=== PATIENT | female | born 1990 | race Caucasian/White ===

== ENCOUNTER 2016-08-04 23:12 | Emergency (ER) | payer OTHER ==
--- NOTE | 2016-08-05 02:48 | ED ORDER SUMMARY ---
..... Patient: ANNA HARKINS OrderSheet [facility] VisitID: [id number] [place] [address] 26y, F Registration Date/Time: 08/04/2016 ORDER SHEET Weight: 65.7 kg (stated) Allergies: Amoxicillin, Codeine, Penicillin GENERAL ORDERS: CBC w Diff Urgent (:08/04/2016 Jacqueline SALINAS) (Ack 23:45 IJurca ER Tech1) CMP Urgent (:08/04/2016 Jacqueline SALINAS) (Ack 23:45 LORETAurca ER Tech1) UA-Culture if indicated Urgent (:08/04/2016 Jacqueline SALINAS) (Ack 23:45 Gail ER Tech1) Urine Urgent (:08/04/2016 Jacqueline SALINAS) (Ack 23:45 IJurca ER Tech1) MEDICATION ORDERS: IV FLUIDS: IV NS : initial bolus 1000 mL (1000 mL/hr), then 1000 mL/hr for X1 (NOW); Routine (:08/04/2016 Jacqueline SALINAS) (0:03 SSambou R.N.) Zofran IV 4 mg (NOW) (:08/04/2016 Jacqueline SALINAS) (0:04 SSambou R.N.) ORDER SHEET NOTES: [Electronically signed by Sheriff Alicia Mills (03:08/05/2016)] [Electronically signed by Sudeep Johnson MD (11:27 08/07/2016)] [Electronically locked/signed by Sheriff Alicia Mills (03:08/05/2016)]
--- NOTE | 2016-08-05 02:48 | ED NURSING NOTES ---
Clinical Report - Nurses [facility] [place] [address] 08/04/2016 23:15 Patient: ANNA HARKINS TRIAGE Triage time 23:26. Acuity: LEVEL 3. Chief Complaint: DIZZINESS, NAUSEA and VOMITING. Alert. --23:31 Sheriff Mills R.N. 23:26 08/04/16. BP: 122/76. HR: 116. RR: 18. O2 saturation: 100%. Temp: 99.1 F. Pain level now: 09/27. --23:31 Sheriff Mills R.N. Weight: 65.7 kg stated. Height/Length: 66 inches Per Patient. BMI: 23.4. --01:59 Sheriff Mills R.N. Medications None. --23:29 Sheriff Mills R.N. Allergies Amoxicillin. Codeine. Penicillin. --23:29 Sheriff Mills R.N. History Historian: patient. Accompanied by spouse. This started today. SOCIAL HX: Never smoker. No alcohol use or drug use. FALL RISK ASSESSMENT: Fall risk assessment completed. No fall risk identified. NUTRITIONAL RISK ASSESSMENT: The nutritional risk assessment revealed no deficiencies. FUNCTIONAL ASSESSMENT: Functional assessment: no impairments noted. LEARNING NEEDS ASSESSMENT: The learning needs assessment revealed no barriers. SKIN INTEGRITY ASSESSMENT: Skin integrity risk assessment completed. No skin integrity risk identified. --23:31 Sheriff Mills R.N. PROBLEMS: Headache. Asthma. --23:30 Sheriff Mills R.N. Interventions ID band on patient. To room. --23:31 Sheriff Mills R.N. PHYSICAL ASSESSMENT GENERAL / NEURO / PSYCH: Alert. Oriented X 4. HEENT: No facial asymmetry noted. RESPIRATORY: Respirations not labored. CVS: Capillary refill less than 2 seconds. Pulses within normal limits. SKIN: Skin is warm and dry. --23:32 Sheriff Mills R.N. NURSING PROGRESS NOTES Patient gowned. Head of bed elevated. Two patient identifiers checked. Call light placed in reach. Side rails up. Bed placed in lowest position. Brakes of bed on. Patient ready for evaluation- chart flagged. --23:32 Sheriff Mills R.N. 00:03 08/05/2016 Site #1 started via IV in the right antecubital space with an 20g angiocath, with aseptic technique and good blood return; one attempt. Blood drawn: rainbow set. Saline lock flushed with 10 mL saline. --00:03 Sheriff Mills R.N. 00:03 08/05/2016 Started bag #1 1000 mL IV Fluids IV NS (Saline); at 999 mL/hr over 45 minute(s) via site #1. Allergies verified and confirmed 5 rights. IV patency established site checked: no pain, redness, or swelling flushed thoroughly pre- and post-medication administration. --00:03 Sheriff Mills R.N. 00:03 08/05/2016 Zofran (Ondansetron HCl) IVP 4 mg given over 1 minute(s) via site #1. Allergies verified and confirmed 5 rights. IV patency established site checked: no pain, redness, or swelling flushed thoroughly pre- and post-medication administration. IVP given by RN. --00:04 Sheriff Mills R.N. 01:40 08/05/16. BP: 107/53. HR: 117. RR: 18. O2 saturation: 98%. Temp: 99.3 F. Pain level now: 06/30. --01:41 Sheriff Mills R.N. Reassessment after fluids administered and medication administered. Overall patient status is improved- she states feels better. RESPIRATORY: No respiratory distress. SKIN: Skin color within normal limits. --01:42 Sheriff Mills R.N. 00:40 08/05/2016 IV Fluids IV NS Discontinued: bag #1 infused. Total amount infused: 1000 mL. IV patency established IV site checked: no pain, redness, or swelling IV flushed thoroughly. --03:19 Sheriff Mills R.N. DISPOSITION / DISCHARGE 03:14 08/05/2016 Site #1 removed. Catheter intact. Bandage applied. --03:14 Sheriff Mills R.N. Condition at departure: stable. No learning barriers present. Discharge instructions provided and reviewed with the patient. Reviewed medication(s) side effects, precautions, dosing and course information. Prescription(s) given to the patient. Patient verbalized understanding. Written instructions provided in German. The patient was discharged by the physician. She was discharged home and accompanied by spouse. She left the Emergency Department ambulatory and via private vehicle. Spouse driving. --03:15 Sheriff Mills R.N. 03:13 08/05/16. BP: 92/48. HR: 113. RR: 18. O2 saturation: 96%. Temp: 99.1 F. Pain level now: 06/30. --03:15 Sheriff Mills R.N. Locked/Released at 08/05/2016 3:19 by Sheriff Mills R.N.
--- NOTE | 2016-08-05 02:48 | ED CLINICAL REPORT ---
Clinical Report - Physicians/Mid Levels [facility] [address] [place] [place] [address] 08/04/2016 23:15 Patient: ANNA HARKINS Time Seen: 23:39 Aug 04 2016. Arrived- By private vehicle. Historian- patient. HISTORY OF PRESENT ILLNESS Chief Complaint: VOMITING and DIARRHEA. This started today started this morning and has not been able to keep anything down all day. and is still present. No recent travel. She has had nausea, vomiting and diarrhea. No black stools, bloody stools, abdominal pain, history of possible bad food exposure or known contact with a sick individual. Has not recently been on antibiotics. The illness is described as moderate. Similar symptoms previously: None. Recent medical care: Not recently seen/assessed. REVIEW OF SYSTEMS The patient has had fever. No muscle aches, difficulty with urination or dark urine. Currently : Not sure. PAST HISTORY Headache. Asthma. Medications: None. Allergies: Amoxicillin. Codeine. Penicillin. SOCIAL HISTORY Never smoker. No alcohol use or drug use. ADDITIONAL NOTES The nursing notes have been reviewed. PHYSICAL EXAM Vital Signs: 08/04/2016 23:26 BP: 122/76. HR: 116. RR: 18. O2 saturation: 100%. Temp: 99.1 F. Pain level now: 5/10. Appearance: Alert. Anxious. Patient in mild distress. Eyes: Pupils equal, round and reactive to light. Eyes normal inspection. ENT: Ears normal. Nose normal. Pharynx normal. Neck: Normal inspection. Neck supple. CVS: Normal heart rate and rhythm. Heart sounds normal. Pulses normal. Respiratory: No respiratory distress. Breath sounds normal. Abdomen: Soft and nontender. Bowel sounds normal. Back: Normal inspection. Skin: Skin warm. Normal skin color. No rash. Extremities: Extremities exhibit normal ROM. No lower extremity edema. Neuro: Oriented X 3. No motor deficit. No sensory deficit. Reflexes normal. LABS, X-RAYS, AND EKG Laboratory Tests: UA-Culture if indicated: (MIHIR: 08/05/2016 02:10) ( MsgRcvd 08/05/2016 02:20) Final results Test Result Flag Units (Reference) URINE COLOR YELLOW URINE APPEARANCE CLEAR URINE GLUCOSE NEGATIVE (NEGATIVE) URINE BILIRUBIN NEGATIVE (NEGATIVE) URINE KETONE 2+ (NEGATIVE) URINE SPECIFIC GRAVITY 1.020 (1.010-1.030) URINE PH 6.0 (5.0-8.0) URINE PROTEIN NEGATIVE (NEGATIVE) URINE UROBILINOGEN 0.2 EU/dL (0.2-1.0) URINE NITRITE NEGATIVE (NEGATIVE) URINE BLOOD NEGATIVE (NEGATIVE) URINE LEUK ESTERASE NEGATIVE (NEGATIVE) URINE RBC 0-1 rbc/hpf (0-1) URINE WBC 0-1 wbc/hpf (0-1) URINE EPITHELIAL CELLS 0-1 EPI/hpf (0-5) URINE BACTERIA NONE SEEN (NONE SEEN) URINE COMMENT CULT NOT INDICATED URINE CULTURES ARE SET-UP BASED ON THE FOLLOWING CRITERIA:POSITIVE NITRITEPOSITIVE LEUKOCYTE ESTERASEGREATER THAN 10 WHITE BLOOD CELLSMODERATE (2+) OR GREATER BACTERIA Urine: (MIHIR: 08/05/2016 02:10) ( [facility] 08/05/2016 02:20) Final results Test Result Flag Units (Reference) URINE NEGATIVE CBC w Diff: (MIHIR: 08/04/2016 23:56) ( [facility] 08/05/2016 00:08) Final results Test Result Flag Units (Reference) WHITE BLOOD COUNT 5.8 K/uL (4.5-11.5) RED BLOOD COUNT 4.70 M/uL (4.00-5.20) HEMOGLOBIN 12.4 gm/dL (12.0-16.0) HEMATOCRIT 37.8 % (36.0-46.0) MEAN CELL VOLUME 81 fL (80-100) MEAN CORPUSCULAR HGB 26 pg (26-34) MEAN CORPUSCULAR HGB CONC 33 g/dL (31-37) RED CELL DISTRIBUTION WIDTH 14.9 H % (11.6-14.8) PLATELET COUNT 360 K/uL (150-400) NEUTROPHIL % 86.9 H % (50-75) LYMPH % 10.6 L % (25-40) MONO % 2.3 L % (3-14) EOSINOPHIL % 0.1 % (0-4) BASOPHIL % 0.1 % (0-2) CMP: (MIHIR: 08/04/2016 23:56) ( MsgRcvd 08/05/2016 00:19) Final results Test Result Flag Units (Reference) GLUCOSE 105 mg/dL (70-110) BUN 11 mg/dL (7-18) CREATININE 0.7 mg/dL (0.6-1.3) Estimated GFR >60 mL/min Estimated GFR- >60 mL/min Note: Persistent reduction over 3 months in eGFR<60 mL/min/1.73 m2 defines CKD. Patients with eGFR values>=60 mL/min/1.73 m2 may also have CKD if evidence ofpersistent proteinuria. Additional information may be foundat www.kidney.org. SODIUM 139 mmol/L (136-145) POTASSIUM 3.2 L mmol/L (3.5-5.1) CHLORIDE 102 mmol/L (98-107) CARBON DIOXIDE 23 mmol/L (21-32) CALCIUM 9.1 mg/dL (8.5-10.1) TOTAL PROTEIN 8.2 g/dL (6.4-8.2) ALBUMIN 4.0 g/dL (3.3-5.0) BILIRUBIN, TOTAL 1.5 H mg/dL (0.0-1.0) ALKALINE PHOSPHATASE 89 U/L (46-116) AST (SGOT) 23 U/L (15-37) ALT (SGPT) 50 U/L (12-78) . PROGRESS AND PROCEDURES Course of Care: IV NS Zofran4 mg IV Potassium mildly low. She will add to her diet. Patient/family counseled. Disposition: Discharged. Condition: stable and improved. CLINICAL IMPRESSION Acute viral gastroenteritis (enterovirus). INSTRUCTIONS Do not work tomorrow, for one day until better. Warnings: Further evaluation is necessary. GENERAL WARNINGS: Return or contact your physician immediately if your condition worsens or changes unexpectedly, if not improving as expected, or if other problems arise. Prescription Medications: Zofran (orally disintegrating tablets) 4 mg: take 1 orally every 4 hours as needed for nausea. Dispense ten (10). No refill. Substitution is permissible. Follow-up: Return to the emergency department If worse. Follow up with your doctor Sunday if not well. Understanding of the discharge instructions verbalized by patient. (Electronically signed by Sudeep Johnson MD 08/07/2016 11:27)
--- NOTE | 2016-08-05 02:48 | ED ORDER SUMMARY ---
..... Patient: ANNA HARKINS OrderSheet [facility] VisitID: [id number] [place] [address] 26y, F Registration Date/Time: 08/04/2016 ORDER SHEET Weight: 65.7 kg (stated) Allergies: Amoxicillin, Codeine, Penicillin GENERAL ORDERS: CBC w Diff Urgent (:08/04/2016 Jacqueline SALINAS) (Ack 23:45 IJurca ER Tech1) CMP Urgent (:08/04/2016 Jacqueline SALINAS) (Ack 23:45 LORETAurca ER Tech1) UA-Culture if indicated Urgent (:08/04/2016 Jacqueline SALINAS) (Ack 23:45 Gail ER Tech1) Urine Urgent (:08/04/2016 Jacqueline SALINAS) (Ack 23:45 IJurca ER Tech1) MEDICATION ORDERS: IV FLUIDS: IV NS : initial bolus 1000 mL (1000 mL/hr), then 1000 mL/hr for X1 (NOW); Routine (:08/04/2016 Jacqueline SALINAS) (0:03 SSambou R.N.) Zofran IV 4 mg (NOW) (:08/04/2016 Jacqueline SALINAS) (0:04 SSambou R.N.) ORDER SHEET NOTES: [Electronically signed by Sheriff Alicia Mills (03:08/05/2016)] [Electronically signed by Sudeep Johnson MD (11:27 08/07/2016)] [Electronically locked/signed by Sheriff Alicia Mills (03:08/05/2016)]
--- NOTE | 2016-08-07 11:27 | ED DISCHARGE INSTRUCTIONS ---
Patient: ANNA HARKINS General Instructions [facility] VisitID: [id number] [place] [address] 26y, F Registration Date/Time: 08/04/2016 Acute viral gastroenteritis (enterovirus). INSTRUCTIONS Do not work tomorrow, for one day until better. Warnings: Further evaluation is necessary. GENERAL WARNINGS: Return or contact your physician immediately if your condition worsens or changes unexpectedly, if not improving as expected, or if other problems arise. Prescription Medications: Zofran (orally disintegrating tablets) 4 mg: take 1 orally every 4 hours as needed for nausea. Dispense ten (10). No refill. Substitution is permissible. Follow-up: Return to the emergency department If worse. Follow up with your doctor Sunday if not well. Understanding of the discharge instructions verbalized by patient. ADDITIONAL INFORMATION Viral Gastroenteritis (6Yr-Adult) Gastroenteritis is another name for thestomach flu.It is most often caused by a virus that affects the stomach and intestinal tract. Symptoms include stomach cramping and fever, vomiting and/or diarrhea, and can last from 2 to 7 days. The danger from repeated vomiting or diarrhea is dehydration. This is the loss of too much water and minerals from the body. When this occurs, body fluids must be replaced. Antibiotics are not effective for this illness, but simple home treatment will be helpful. Home Care If symptoms are severe, rest at home for the next 24 hours. Avoid tobacco, caffeine, and alcohol use, which can worsen symptoms. Acetaminophen (Tylenol) or ibuprofen (Motrin, Advil) may be usedfor fever or pain unless another medication was prescribed. NOTE: If you have chronic liver or kidney disease or ever had a stomach ulcer or GI bleeding, talk with your doctor before using these medicines. Aspirin should never be used in anyone under 18 years of age who is ill with a fever. It may cause severe liver damage. If medicines for diarrhea or vomiting were prescribed, be sure they are takenonly as directed. If vomiting, drink small amounts of clear fluids (such as water, sports drinks, clear sodas) at frequent intervals to prevent dehydration. Start with 1 to 2 tablespoons every 10 minutes. Once vomiting stops, follow these guidelines: During The First 12 To 24 Hours follow the diet below: Beverages: Sport drinks like Gatorade, soft drinks without caffeine; jonathan alfred, mineral water (plain or flavored), decaffeinated tea and coffee. Soups: Clear broth, consomm and bouillon Desserts: Plain gelatin (Jell-O), Popsicles and fruit juice bars. During The Next 24 Hours you may add the following to the above: Hot cereal, plain toast, bread, rolls, crackers Plain noodles, rice, mashed potatoes, chicken noodle or rice soup Unsweetened canned fruit (avoid pineapple), bananas Limit fat intake to less than 15 grams per day by avoiding margarine, butter, oils, mayonnaise, sauces, gravies, fried foods, peanut butter, meat, poultry, and fish. Limit fiber; avoid raw or cooked vegetables, fresh fruits (except bananas), and bran cereals. Limit caffeine and chocolate. Do not use spices or seasonings except salt. During The Next 24 Hours The patient can gradually resume a normal diet as symptoms lessen. Preventing Spread Hand washing with soap and water is the best way to prevent the spread of viruses. Caregivers should wash their hands before andafter touching the sick person. The sick person, as well as everyone in the family,should wash their hands after using the toilet and before meals. Clean the toilet after each use. People with diarrhea should not prepare food for others. If you are preparing your own foods, wash your hands before and after. Follow Up with your doctor as advised. Call your doctor if you are not improving over the next 2 to 3 days. If a stool (diarrhea) sample was taken, you may call in 2 days (or as directed) for the results. Get Prompt Medical Attention if any of the following occur: Increasing abdominal pain Continued vomiting (unable to keep liquids down) Frequent diarrhea (more than 5 times a day) Blood in vomit or stool (black or red color) Dark urine, reduced urine output, or extreme thirst Weakness, dizziness, fainting Drowsiness, confusion, stiff neck, or seizure Fever of 100.4F (38C) oral or higher, not better with fever medication New rash Ondansetron Oral disintegrating tablet What is this medicine? ONDANSETRON (on JOSETTE se ivory) is used to treat nausea and vomiting caused by chemotherapy. It is also used to prevent or treat nausea and vomiting after surgery. How should I use this medicine? These tablets are made to dissolve in the mouth. Do not try to push the tablet through the foil backing. With dry hands, peel away the foil backing and gently remove the tablet. Place the tablet in the mouth and allow it to dissolve, then swallow. While you may take these tablets with water, it is not necessary to do so. Talk to your head teller regarding the use of this medicine in children. Special care may be needed. What side effects may I notice from receiving this medicine? Side effects that you should report to your doctor or health child care center assistant director as soon as possible: allergic reactions like skin rash, itching or hives, swelling of the face, lips, or tongue breathing problems dizziness fast or irregular heartbeat feeling faint or lightheaded, falls fever and chills swelling of the hands and feet tightness in the chest Side effects that usually do not require medical attention (report to your doctor or health child care center assistant director if they continue or are bothersome): constipation or diarrhea headache What may interact with this medicine? Do not take this medicine with any of the following medications: -apomorphine -cisapride -dofetilide -dronedarone -pimozide -thioridazine -ziprasidone This medicine may also interact with the following medications: -carbamazepine -phenytoin -rifampicin -tramadol -other medicines that prolong the QT interval (cause an abnormal heart rhythm) What if I miss a dose? If you miss a dose, take it as soon as you can. If it is almost time for your next dose, take only that dose. Do not take double or extra doses. Where should I keep my medicine? Keep out of the reach of children. Store between 2 and 30 degrees C (36 and 86 degrees F). Throw away any unused medicine after the expiration date. What should I tell my health care provider before I take this medicine? They need to know if you have any of these conditions: heart disease history of irregular heartbeat liver disease low levels of magnesium or potassium in the blood an unusual or allergic reaction to ondansetron, granisetron, other medicines, foods, dyes, or preservatives or trying to get breast-feeding What should I watch for while using this medicine? Check with your doctor or health child care center assistant director as soon as you can if you have any sign of an allergic reaction. You have been given the following additional information: Gastroenteritis, Viral (6Y-Adult) Ondansetron Oral disintegrating tablet Do not work tomorrow, for one day until better. (Electronically signed by Sudeep Johnson MD 08/07/2016 11:27)
--- NOTE | 2016-08-07 11:27 | ED MAR SUMMARY ---
..... Medication Administration Record [facility] [address] [place] [address] Patient: ANNA HARKINS Visit ID: [id number] 26y, F Weight: 65.7 kg Height/Length: 66 in BMI: 23.4 ALLERGIES: Amoxicillin, Codeine, Penicillin Start 00:03 08/05/2016 Sheriff Mills R.N., Stop 00:40 08/05/2016 Sheriff Mills R.N. Medication Administered: IV NS (SALINE), Dose: IV Fluids over 45 minute(s), Rate: 999 mL/hr, Dispensed: 1000 mL bag, Site: #1 right AC. Medication Ordered: IV NS : initial bolus 1000 mL (1000 mL/hr), then 1000 mL/hr for X1 (NOW); Routine. Given 00:03 08/05/2016 Sheriff Mills R.N. Medication Administered: ZOFRAN [IVP] (ONDANSETRON HCL), Dose: 4 mg IVP over 1 minute(s), Site: #1 right AC. Medication Ordered: Zofran IV 4 mg (NOW).
--- NOTE | 2016-08-07 11:27 | ED MED RECONCILIATION SUMMARY ---
Patient: ANNA HARKINS Medication Reconciliation Report [facility] VisitID: [id number] [address] [place] [address] 26y, F Registration Date/Time: 08/04/2016 Weight: 65.7 kg Height/Length: 66 in. BMI: 23.4 ALLERGIES: Amoxicillin, Codeine, Penicillin The patient's Home Medications are listed below: NONE. The source(s) of the original Home Medication information: Not obtained. The following Medications were given to the patient in the Emergency Department: IV NS IV Fluids bolus 0, then 999 mL/hr, administered: 08/05/2016 12:03:00 AM Zofran [IVP] IVP 4 mg, administered: 08/05/2016 12:03:00 AM The following Medications were prescribed to the patient: Zofran (orally disintegrating tablets) 4 mg: take 1 orally every 4 hours as needed for nausea. Dispense ten (10). No refill. Substitution is permissible. -- Sudeep Johnson MD
--- NOTE | 2016-08-07 11:27 | ED MAR SUMMARY ---
..... Medication Administration Record [facility] [address] [place] [address] Patient: ANNA HARKINS Visit ID: [id number] 26y, F Weight: 65.7 kg Height/Length: 66 in BMI: 23.4 ALLERGIES: Amoxicillin, Codeine, Penicillin Start 00:03 08/05/2016 Sheriff Mills R.N., Stop 00:40 08/05/2016 Sheriff Mills R.N. Medication Administered: IV NS (SALINE), Dose: IV Fluids over 45 minute(s), Rate: 999 mL/hr, Dispensed: 1000 mL bag, Site: #1 right AC. Medication Ordered: IV NS : initial bolus 1000 mL (1000 mL/hr), then 1000 mL/hr for X1 (NOW); Routine. Given 00:03 08/05/2016 Sheriff Mills R.N. Medication Administered: ZOFRAN [IVP] (ONDANSETRON HCL), Dose: 4 mg IVP over 1 minute(s), Site: #1 right AC. Medication Ordered: Zofran IV 4 mg (NOW).
--- NOTE | 2016-08-07 11:27 | ED MED RECONCILIATION SUMMARY ---
Patient: ANNA HARKINS Medication Reconciliation Report [facility] VisitID: [id number] [address] [place] [address] 26y, F Registration Date/Time: 08/04/2016 Weight: 65.7 kg Height/Length: 66 in. BMI: 23.4 ALLERGIES: Amoxicillin, Codeine, Penicillin The patient's Home Medications are listed below: NONE. The source(s) of the original Home Medication information: Not obtained. The following Medications were given to the patient in the Emergency Department: IV NS IV Fluids bolus 0, then 999 mL/hr, administered: 08/05/2016 12:03:00 AM Zofran [IVP] IVP 4 mg, administered: 08/05/2016 12:03:00 AM The following Medications were prescribed to the patient: Zofran (orally disintegrating tablets) 4 mg: take 1 orally every 4 hours as needed for nausea. Dispense ten (10). No refill. Substitution is permissible. -- Sudeep Johnson MD
== END 2016-08-05 03:10 | disposition home or self-care (01) ==
LOC: ED SRH 23:12
DX: B34.1 Enterovirus infection, unspecified (principal); Z88.0 Allergy status to penicillin; Z88.5 Allergy status to narcotic agent; J45.909 Unspecified asthma, uncomplicated
CPT/HCPCS: 90004; 90100; 93070; 95059